=== PATIENT | male | born 1975 | race Caucasian/White ===

== ENCOUNTER 2017-06-08 21:03 | Inpatient (IN) | payer MEDICARE, MEDICAID ==
[~2017-06-08] VITALS: Ht 175.3 cm; Wt 58.1 kg
[~2017-06-08 21:03] MED LIST: CARB200T PO; ONDA-42 SL; PANT40TA PO; SIMV20TA3 PO; SULF-222 PO
[2017-06-08] MEDS ORDERED: OLAN10TA19 (21:17)
[2017-06-08] MEDS ORDERED: NS IV 1000 ML 1,000 ML IV ONE (22:19)
[2017-06-08 22:48] LABS: BASOPHILS % (AUTO) 0 % (0-10); EOSINOPHILS % (AUTO) 0 % (0-10); LYMPHOCYTES # (AUTO) 0.7 X 10^3 (1.0-4.0); LYMPHOCYTES % (AUTO) 7 % (12-44); MEAN CORPUSCULAR HEMOGLOBIN 31 PG (25-34); MEAN CORPUSCULAR HGB CONC 36 G/DL (32-36); MEAN CORPUSCULAR VOLUME 86 FL (80-99); MEAN PLATELET VOLUME 10.2 FL (7.4-10.4); MONOCYTES # (AUTO) 1.1 X 10^3 (0.0-1.0); MONOCYTES % (AUTO) 11 % (0-12); NEUTROPHILS # (AUTO) 8.3 X 10^3 (1.8-7.8); NEUTROPHILS % (AUTO) 83 % (42-75); PLATELET COUNT 241 10^3/uL (130-400); RED BLOOD COUNT 4.65 10^6/uL (4.35-5.85); RED CELL DISTRIBUTION WIDTH 12.8 % (10.0-14.5)
[2017-06-08 23:03] LABS: INR 1.2 (0.8-1.4); PROTHROMBIN TIME PATIENT 14.5 SEC (12.2-14.7)
[2017-06-08 23:05] LABS: ALANINE AMINOTRANSFERASE 13 U/L (0-55); ALBUMIN 4.2 GM/DL (3.2-4.5); ANION GAP 9 MMOL/L (5-14); ASPARTATE AMINO TRANSFERASE 11 U/L (5-34); BILIRUBIN,TOTAL 1.5 MG/DL (0.1-1.0); BLOOD UREA NITROGEN 11 MG/DL (7-18); BUN/CREATININE RATIO 12; CALCIUM 9.4 MG/DL (8.5-10.1); CARBON DIOXIDE 28 MMOL/L (21-32); CHLORIDE 102 MMOL/L (98-107); GFR ESTIMATED > 60; GLUCOSE 145 MG/DL (70-105); POTASSIUM 3.1 MMOL/L (3.6-5.0); SODIUM 139 MMOL/L (135-145); TOTAL PROTEIN 7.2 GM/DL (6.4-8.2); hs C REACTIVE PROTEIN 3.29 MG/DL (0.00-0.50)
[2017-06-08 23:09] LABS: BILIRUBIN,URINE 2+ (NEGATIVE); KETONES,URINE 4+ (NEGATIVE); LEUKOCYTE ESTERASE ,URINE 1+ (NEGATIVE); NITRITE,URINE NEGATIVE (NEGATIVE); PH,URINE 6 (5-9); PROTEIN,URINE 3+ (NEGATIVE); UROBILINOGEN,URINE 4 MG/DL (NORMAL)
[2017-06-08 23:10] LABS: BAND NEUTROPHILS 0 %; BASOPHILS % (MANUAL) 0 %; EOSINOPHILS % (MANUAL) 0 %; LYMPHOCYTES % (MANUAL) 8 %; NEUTROPHILS % (MANUAL) 82 %
[2017-06-08 23:11] LABS: REACTIVE LYMPHOCYTES 3 %
[2017-06-08 23:29] LABS: WBC,URINE 0-2 /HPF
[2017-06-08 23:30] LABS: HYALINE CASTS, URINE RARE /LPF
[2017-06-08] MEDS ORDERED: cefTRIAXone INJECTION 1,000 MG in NS (IVPB) 50 ML IV ONE (23:45)
--- NOTE | 2017-06-09 01:21 | ED General ---
General Chief Complaint: General Problems/Pain Stated Complaint: HASNT BEEN EATING,UNSTABLE Nursing Triage Note: PARENTS REPORT DECREASED PO INTAKE TODAY, "NOT FEELING RIGHT" Nursing Sepsis Screen: No Definite Risk Source of Information: Patient, Family Exam Limitations: No Limitations History of Present Illness Time Seen by Provider: 22:10 Initial Comments This 41-year-old gentleman is brought to the emergency room by his family because of altered mental status. They report that he recently has been less responsive, not eating, and seems "zoned out". His change in behavior was noted last night. Patient is MR and has cerebral palsy but lives alone. Family notes he had been on olanzapine which was recently discontinued. He has been taking Benadryl at night instead to help him sleep. However, family elected to give him olanzapine this evening around 18:30. Family believes he has had some cough and chills for the last couple of days. They state he drinks an excessive amount of soda. They noticed last night patient sat out side into the boiler maker hours which is unusual for him. They also report he has fallen out of bed recently which is also unusual for him. Patient's level of alertness on arrival as waxing and waning. At times he is so somnolent that he requires sternal rub to respond. Patient's primary care provider is Dr. Baker. Allergies and Home Medications Allergies Coded Allergies: IZAANo Known Allergies (Verified Allergy, Unknown, 09/01/06) Home Medications Carbamazepine 200 Mg Tablet, 200 MG PO Q8H, (Reported) Olanzapine 10 Mg Tablet, #30 (Reported) Ondansetron Hcl 4 Mg Tab, 4 MG SL Q4H, #20 FOR NAUSEA AND VOMITING Prescribed by: GLEN KUO on 11/13/14 1352 Pantoprazole Sodium 40 Mg Tablet.dr, 40 MG PO DAILY, (Reported) Simvastatin 20 Mg Tablet, 20 MG PO DAILY, (Reported) Constitutional: see HPI EENTM: no symptoms reported Respiratory: see HPI Cardiovascular: no symptoms reported Gastrointestinal: see HPI Genitourinary: no symptoms reported Musculoskeletal: no symptoms reported Skin: no symptoms reported Psychiatric/Neurological: See HPI Past Ewkannc-Iipcpi-Azhtil Hx Patient Social History Alcohol Use: Denies Use Recreational Drug Use: No 2nd Hand Smoke Exposure: No Recent Foreign Travel: No Contact w/Someone Who Travel: No Recent Infectious Disease Expo: No Recent Hopitalizations: No Immunizations Up To Date Tetanus Booster (TDap): Unknown Date of Influenza Vaccine: Aug 25, 2014 Seasonal Allergies Seasonal Allergies: No Surgeries HX Surgeries: Yes (ON HIS FEET) Surgeries: Orthopedic Respiratory Hx Respiratory Disorders: No Cardiovascular Hx Cardiac Disorders: Yes Cardiac Disorders: High Cholesterol Neurological Hx Neurological Disorders: Yes Neurological Disorders: Cerebral Palsy Genitourinary Hx Genitourinary Disorders: No Gastrointestinal Hx Gastrointestinal Disorders: No Musculoskeletal Hx Musculoskeletal Disorders: Yes (HX OF BRACES ON LEGS TO HELP WALK) Endocrine Hx Endocrine Disorders: No HEENT HX ENT Disorders: No Cancer Hx Cancer: No Psychosocial Hx Psychiatric Problems: Yes ("MOOD SWINGS", MR from cerebral palsy) Integumentary HX Skin/Integumentary Disorder: No Blood Transfusions Hx Blood Disorders: No Physical Exam Vital Signs Vital Sign - Last 12Hours 06/08/17 06/08/17 21:18 22:00 Temp 98.3 Pulse 115 Resp 18 B/P (MAP) 125/83 Pulse Ox 95 O2 Delivery Room Air O2 Flow Rate 2.00 Capillary Refill : Less Than 3 Seconds General Appearance: No Apparent Distress, WD/WN HEENT: PERRL/EOMI (sluggish pupils), TMs Normal, Normal ENT Inspection, Pharynx Normal Neck: Normal Inspection, Supple Respiratory: Lungs Clear, Normal Breath Sounds, No Accessory Muscle Use, No Respiratory Distress Cardiovascular: Regular Rate, Rhythm, No Edema, No Murmur Gastrointestinal: Normal Bowel Sounds, Non Tender, Soft Extremity: Normal Inspection, No Pedal Edema Neurologic/Psychiatric: No Motor/Sensory Deficits, Other (level of alertness is waxing and waning. At times he is conversational, at other times he requires pain to elicit a response.) Skin: Normal Color, Warm/Dry Focused Exam Lactic Acid Level Progress/Results/Core Measures Results/Orders Lab Results Laboratory Tests Test 06/08/17 22:38 06/08/17 23:00 Range/Units White Blood Count 10.0 4.3-11.0 10^3/uL Red Blood Count 4.65 4.35-5.85 10^6/uL Hemoglobin 14.3 13.3-17.7 G/DL Hematocrit 40 40-54 % Mean Corpuscular Volume 86 80-99 FL Mean Corpuscular Hemoglobin 31 25-34 PG Mean Corpuscular Hemoglobin Concent 36 32-36 G/DL Red Cell Distribution Width 12.8 10.0-14.5 % Platelet Count 241 130-400 10^3/uL Mean Platelet Volume 10.2 7.4-10.4 FL Neutrophils (%) (Auto) 83 H 42-75 % Lymphocytes (%) (Auto) 7 L 12-44 % Monocytes (%) (Auto) 11 0-12 % Eosinophils (%) (Auto) 0 0-10 % Basophils (%) (Auto) 0 0-10 % Neutrophils # (Auto) 8.3 H 1.8-7.8 X 10^3 Lymphocytes # (Auto) 0.7 L 1.0-4.0 X 10^3 Monocytes # (Auto) 1.1 H 0.0-1.0 X 10^3 Eosinophils # (Auto) 0.0 0.0-0.3 10^3/uL Basophils # (Auto) 0.0 0.0-0.1 10^3/uL Neutrophils % (Manual) 82 % Lymphocytes % (Manual) 8 % Monocytes % (Manual) 7 % Eosinophils % (Manual) 0 % Basophils % (Manual) 0 % Band Neutrophils 0 % Reactive Lymphocytes 3 % Toxic Granulation 1+ Clumped Platelets SLIGHT Blood Morphology Comment NORMAL Prothrombin Time 14.5 12.2-14.7 SEC INR Comment 1.2 0.8-1.4 Activated Partial Thromboplast Time 31 24-35 SEC Sodium Level 139 135-145 MMOL/L Potassium Level 3.1 L 3.6-5.0 MMOL/L Chloride Level 102 98-107 MMOL/L Carbon Dioxide Level 28 21-32 MMOL/L Anion Gap 9 5-14 MMOL/L Blood Urea Nitrogen 11 7-18 MG/DL Creatinine 0.90 0.60-1.30 MG/DL Estimat Glomerular Filtration Rate > 60 BUN/Creatinine Ratio 12 Glucose Level 145 H 70-105 MG/DL Lactic Acid Level 1.12 0.50-2.00 MMOL/L Calcium Level 9.4 8.5-10.1 MG/DL Total Bilirubin 1.5 H 0.1-1.0 MG/DL Aspartate Amino Transf (AST/SGOT) 11 5-34 U/L Alanine Aminotransferase (ALT/SGPT) 13 0-55 U/L Alkaline Phosphatase 96 40-136 U/L C-Reactive Protein High Sensitivity 3.29 H 0.00-0.50 MG/DL Total Protein 7.2 6.4-8.2 GM/DL Albumin 4.2 3.2-4.5 GM/DL Urine Color YELLOW Urine Clarity CLEAR Urine pH 6 5-9 Urine Specific [place] 1.015 L 1.016-1.022 Urine Protein 3+ H NEGATIVE Urine Glucose (UA) 2+ H NEGATIVE Urine Ketones 4+ H NEGATIVE Urine Nitrite NEGATIVE NEGATIVE Urine Bilirubin 2+ H NEGATIVE Urine Urobilinogen 4 H NORMAL MG/DL Urine Leukocyte Esterase 1+ H NEGATIVE Urine RBC (Auto) NEGATIVE NEGATIVE Urine RBC RARE /HPF Urine WBC 0-2 /HPF Urine Squamous Epithelial Cells 2-5 /HPF Urine Renal Epithelial Cells NONE /HPF Urine Crystals PRESENT H /LPF Urine Amorphous Sediment MOD BENJI URATES H /LPF Urine Bacteria MODERATE H /HPF Urine Casts PRESENT /LPF Urine Hyaline Casts RARE /LPF Urine Mucus MODERATE H /LPF Urine Culture Indicated NO My Orders Orders - LUIS MIGUEL LAURENT MD Cbc With Automated Diff (06/08/17 22:19) Comprehensive Metabolic Panel (06/08/17 22:19) Lactic Acid Analyzer (06/08/17 22:19) Blood Culture (06/08/17 22:19) Sputum Culture (06/08/17 22:19) Ua Culture If Indicated (06/08/17 22:19) Protime With Inr (06/08/17 22:19) Partial Thromboplastin Time (06/08/17 22:19) Chest 1 View, Ap/Pa Only (06/08/17 22:19) O2 (06/08/17 22:19) Saline Lock/Iv-Start (06/08/17 22:19) Saline Lock/Iv-Start (06/08/17 22:19) Remove Rings In Anticipation O (06/08/17 22:19) Ns Iv 1000 Ml (Sodium Chloride 0.9%) (06/08/17 22:19) Hs C Reactive Protein (06/08/17 22:36) Smith Cath Insertion (06/08/17 22:36) Manual Differential (06/08/17 22:38) Ceftriaxone Injection (Rocephin Injectio (06/08/17 23:45) Medications Given in ED Current Medications Medications Dose Ordered Sig/Suad Route Start Time Stop Time Status Last Admin Dose Admin Ceftriaxone Sodium 1000 mg/ Sodium Chloride 50 ml @ 100 mls/hr ONCE ONCE IV 06/08/17 23:45 06/09/17 00:14 DC 06/09/17 00:24 100 MLS/HR Sodium Chloride 1,000 ml @ 0 mls/hr Q0M ONCE IV 06/08/17 22:19 06/08/17 22:21 DC 06/08/17 22:42 0 MLS/HR Vital Signs/I&O Vital Sign - Last 12Hours 06/08/17 06/08/17 06/09/17 06/09/17 21:18 22:00 00:00 00:10 Temp 98.3 98.0 98.0 Pulse 115 90 90 Resp 18 20 20 B/P (MAP) 125/83 101/77 115/83 Pulse Ox 95 95 95 99 O2 Delivery Room Air Nasal Cannula Nasal Cannula Nasal Cannula O2 Flow Rate 2.00 2.00 2.00 06/09/17 06/09/17 01:30 01:40 Temp 98.9 Pulse 90 Resp 20 Pulse Ox 95 O2 Delivery Nasal Cannula Room Air O2 Flow Rate 2.00 Blood Pressure Mean: 97 Progress Note : Progress Note Patient received a liter of IV normal saline as he was initially tachycardic. Labs revealed hypokalemia. Patient had urine suggestive of hypovolemia and urinary tract infection. A gram Rocephin was administered in the emergency room. Overall, patient's mental status improved significantly during his ER stay. He was much more alert at the time of admission. Given patient's social circumstances, it was felt he would best be served by admission and observation overnight. IV hydration with potassium replacement was ordered. Diagnostic Imaging Diagonstic Imaging: Xray Plain Films/CT/US/NM/MRI: chest Comments Chest x-ray viewed by me. Report not yet available. No acute abnormalities appreciated. Departure Communication Time/Spoke to Admitting Phy: 01:[address] Jerez Impression Impression: Primary Impression: Altered mental status Qualified Codes: R41.82 - Altered mental status, unspecified Additional Impressions: Hypokalemia Hypovolemia Urinary tract infection Qualified Codes: N39.0 - Urinary tract infection, site not specified Disposition: ADMITTED INPATIENT Condition: Improved Decision to Admit Reason: Admit from ER (General) Decision to Admit/Date: Jun 09, 2017 Time/Decision to Admit Time: 01:08 Departure-Patient Inst. Referrals: DEN BAKER MD (PCP) Primary Care Physician RAY ONOFRE MD (Family) Primary Care Physician LUIS MIGUEL LAURENT MD Jun 09, 2017 01:21
[2017-06-09] MEDS ORDERED: NS W/KCL 40 MEQ/L 1,000 ML IV ONE (02:07)
[2017-06-09] MEDS ORDERED: ONDANSETRON 4 MG/2 ML (SDV) Z0FRAN IV PRN (02:30)
[2017-06-09] MEDS: NS W/KCL 40 MEQ/L 1,000 ML IV SCH ×2 (03:02→09:00)
[2017-06-09 03:58] VITALS: BP 110/72
[2017-06-09 06:05] LABS: BASOPHILS % (AUTO) 0 % (0-10); EOSINOPHILS % (AUTO) 1 % (0-10); LYMPHOCYTES # (AUTO) 0.9 X 10^3 (1.0-4.0); LYMPHOCYTES % (AUTO) 16 % (12-44); MEAN CORPUSCULAR HEMOGLOBIN 31 PG (25-34); MEAN CORPUSCULAR HGB CONC 36 G/DL (32-36); MEAN CORPUSCULAR VOLUME 88 FL (80-99); MEAN PLATELET VOLUME 10.2 FL (7.4-10.4); MONOCYTES # (AUTO) 0.6 X 10^3 (0.0-1.0); MONOCYTES % (AUTO) 11 % (0-12); NEUTROPHILS # (AUTO) 4.2 X 10^3 (1.8-7.8); NEUTROPHILS % (AUTO) 73 % (42-75); PLATELET COUNT 198 10^3/uL (130-400); RED CELL DISTRIBUTION WIDTH 12.8 % (10.0-14.5); WHITE BLOOD COUNT 5.8 10^3/uL (4.3-11.0)
[2017-06-09 06:22] LABS: ANION GAP 8 MMOL/L (5-14); BLOOD UREA NITROGEN 10 MG/DL (7-18); BUN/CREATININE RATIO 13; CALCIUM 8.4 MG/DL (8.5-10.1); CARBON DIOXIDE 26 MMOL/L (21-32); CHLORIDE 108 MMOL/L (98-107); CREATININE SERUM 0.76 MG/DL (0.60-1.30); GFR ESTIMATED > 60; GLUCOSE 108 MG/DL (70-105); POTASSIUM 3.6 MMOL/L (3.6-5.0); SODIUM 142 MMOL/L (135-145)
[2017-06-09 08:00] VITALS: BP 111/65
--- NOTE | 2017-06-09 08:33 | Diagnostic Imaging Report ---
INDICATION: Acute mental status change. EXAMINATION: Chest 06/08/2017 COMPARISON: 11/13/2014 FINDINGS: The cardiomediastinal silhouette is unremarkable. The pulmonary vasculature is within normal limits. The lungs and pleural spaces are clear. IMPRESSION: No evidence of an acute cardiopulmonary process. Dictated by: Dictated on workstation # [id number]
[2017-06-09] MEDS ORDERED: OMEP20CA12 PO (09:28)
[2017-06-09 09:45] VITALS: BP 111/65
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
[2017-06-10] MEDS ORDERED: cefTRIAXone INJECTION 1,000 MG in NS (IVPB) 50 ML IV SCH (01:00)
== END 2017-06-09 09:45 | disposition home or self-care (01) | DRG 918 ==
LOC: EDUNIT# 21:03 → ER 21:05 → 4TH 06-09 01:08
PROVIDERS: ADMIT Internal Medicine; ATTEND Internal Medicine
DX: T45.0X1A Poisoning by antiallergic and antiemetic drugs, accidental (unintentional), initial encounter (principal); F79 Unspecified intellectual disabilities; R41.82 Altered mental status, unspecified; E78.00 Pure hypercholesterolemia, unspecified; G80.9 Cerebral palsy, unspecified; R82.71 Bacteriuria; E87.6 Hypokalemia; E86.1 Hypovolemia
CPT/HCPCS: 36415; 71010; 80048; 80053; 81000; 83605; 85007; 85025; 85027; 85610; 85730; 86141; 87040; 96361; 96374

== ENCOUNTER 2020-08-03 19:24 | Emergency (ER) | payer MEDICARE, MEDICAID ==
[~2020-08-03] VITALS: Ht 175 cm; Wt 58.1 kg
[~2020-08-03 19:24] MED LIST changes: +OLAN10TA19; +OMEP20CA18 PO
[2020-08-03] MEDS ORDERED: TETANUS,DIPTH,PERTUSS P/F (BOOSTRIX) 0.5 ML VIAL IM ONE (19:45)
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
--- NOTE | 2020-08-03 19:58 | NUR ---
ADENIKE LEWIS CALLED ET. UPDATED ON ANTICIPATED WAIT TIME FOR RESULTS, ET. PT'S CONDITION.
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
--- NOTE | 2020-08-03 20:43 | Diagnostic Imaging Report ---
PROCEDURE: CT thoracic and lumbar spine without contrast. TECHNIQUE: Multiple contiguous axial images were obtained through the thoracic and lumbar spine without the use of intravenous contrast. Sagittal and coronal reformations were then performed. All CT scans use one or more of the following dose optimizing techniques: automated exposure control, MA and/or KvP adjustment based on a patient size and exam type, or iterative reconstruction. DATE: August 03, 2020. INDICATION: 44-year-old male, trauma. Mid and lower back pain. COMPARISON: None. FINDINGS: There is no identified acute fracture of the thoracic or lumbar spine. There is no abnormal alignment of the thoracic or lumbar spine. There is moderate disc height loss at L5-S1 with a posterior disc protrusion. The sacroiliac joints are unremarkable in appearance. IMPRESSION: 1. No acute fracture of the thoracic or lumbar spine. 2. Moderate disc height loss at L5-S1 with posterior disc protrusion at this level. Dictated by: Dictated on workstation # [id number]
--- NOTE | 2020-08-03 20:43 | Diagnostic Imaging Report ---
PROCEDURE: CT chest, abdomen, and pelvis without contrast. TECHNIQUE: Multiple contiguous axial images were obtained through the chest, abdomen, and pelvis without the use of intravenous contrast. Auto Exposure Controls were utilized during the CT exam to meet ALARA standards for radiation dose reduction. DATE: August 03, 2020. COMPARISON: Chest radiograph August 03, 2020. INDICATION: 44-year-old male, trauma. Chest and abdominal pain. FINDINGS: There are limitations for evaluation of the abdominal organs, neoplastic processes, abscess, and limited evaluation of the vasculature relating to the lack of intravenous contrast. There is no pneumothorax. There is no pleural effusion. There is minimal dependent atelectasis in the left lower lobe. There is no additional focal airspace consolidation. The heart is not enlarged. There is no identified mediastinal hematoma. There is very limited evaluation for acute abdominal parenchymal organ injury given lack of intravenous contrast. The liver is unremarkable in size and contour. There is no identified abnormal perihepatic fluid. The gallbladder is not particularly well seen. There is no identified intrahepatic or extrahepatic bile duct dilation. The main pancreatic duct is not grossly dilated. Limited noncontrast evaluation of the pancreas is unremarkable. The spleen is normal in size. There is no abnormal fluid immediately adjacent to the spleen. The adrenal glands are unremarkable. Unremarkable limited noncontrast evaluation of the renal parenchyma. The urinary collecting systems are not distended. The urinary bladder is grossly unremarkable. There is a moderate to large volume colonic stool. There is no identified free intraperitoneal air. There is no free fluid in the abdomen or pelvis or drainable fluid collection. There is no identified acute fracture. There are disc degenerative changes at L5-S1. IMPRESSION: CT chest, abdomen, and pelvis. 1. Limited evaluation for acute abdominal organ parenchymal injury given lack of intravenous contrast. There are additional limitations of the exam without intravenous contrast. 2. No identified acute posttraumatic abnormality at the level of the chest, abdomen, or pelvis. Dictated by: Dictated on workstation # [id number]
--- NOTE | 2020-08-03 21:01 | NUR ---
[facility] CALLED INFORMED OF PLAN FOR DISCHARGE, ET. NEED FOR FOLLOW UP.
[2020-08-03 21:11] VITALS: BP 110/77
== END 2020-08-03 21:46 | disposition home or self-care (01) ==
LOC: EDUNIT# 19:24 → ER 19:26
DX: S09.90XA Unspecified injury of head, initial encounter (principal); S30.0XXA Contusion of lower back and pelvis, initial encounter; S00.432A Contusion of left ear, initial encounter; S40.812A Abrasion of left upper arm, initial encounter; S40.811A Abrasion of right upper arm, initial encounter; S60.511A Abrasion of right hand, initial encounter; S60.512A Abrasion of left hand, initial encounter; E78.00 Pure hypercholesterolemia, unspecified; G80.9 Cerebral palsy, unspecified; G40.909 Epilepsy, unspecified, not intractable, without status epilepticus; Z23 Encounter for immunization; Z80.8 Family history of malignant neoplasm of other organs or systems; Y04.0XXA Assault by unarmed brawl or fight, initial encounter
CPT/HCPCS: 70450; 70486; 71045; 71250; 72125; 72128; 72131; 74176; 90715